=== PATIENT | female | born 1940 | race Two or more races ===

== ENCOUNTER 2023-05-19 09:42 | Outpatient (CLI) | payer OTHER ==
[2023-05-19 10:23] LABS: HEMATOCRIT 34.9 % (36.0-45.00); HEMOGLOBIN 11.6 g/dL (12.0-15.00); MEAN CORPUSCULAR HEMOGLOBIN 31.8 pg (27.00-32.0); MEAN CORPUSCULAR HGB CONC 33.1 g/dl (32.0-36.0); PLATELET COUNT 481 K/uL (150-450); RED BLOOD COUNT 3.64 M/uL (4.00-6.00); RED CELL DISTRIBUTION WIDTH 16.7 % (11.5-14.5)
[2023-05-19 11:08] LABS: ALBUMIN 4.1 gm/dL (3.4-5.0); BILIRUBIN TOTAL 0.36 mg/dL (0.3-1.2); CREATININE SERUM 1.78 mg/dL (0.55-1.02); GFR 27.35; GLOBULINA 4.1 G/DL (2.4-3.5); POTASSIUM 5.45 mEq/L (3.5-5.1); TOTAL PROTEIN 8.2 gm/dL (6.4-8.2); TSH 2.49 uIU/mL (0.358-3.74)
[2023-05-19 13:27] LABS: MANUAL PLATELET COUNT 610
[2023-05-19 13:29] LABS: PLATELET ESTIMATE INCREASED (NORMAL)
== END 2023-05-19 09:47 | disposition home or self-care (01) ==
LOC: LAB 09:42
PROVIDERS: ATTEND Internal Medicine Hematology & Oncology
DX: E11.65 Type 2 diabetes mellitus with hyperglycemia (principal); E06.3 Autoimmune thyroiditis; D47.3 Essential (hemorrhagic) thrombocythemia; D51.1 Vitamin B12 deficiency anemia due to selective vitamin B12 malabsorption with proteinuria; Z86.73 Personal history of transient ischemic attack (TIA), and cerebral infarction without residual deficits; G45.9 Transient cerebral ischemic attack, unspecified; E11.9 Type 2 diabetes mellitus without complications; E03.0 Congenital hypothyroidism with diffuse goiter; M06.9 Rheumatoid arthritis, unspecified; M05.79 Rheumatoid arthritis with rheumatoid factor of multiple sites without organ or systems involvement

== ENCOUNTER 2024-08-21 09:12 | Outpatient (CLI) | payer OTHER ==
[~2024-08-21 09:12] MED LIST: ACTOS15 MG PO; ATACAND HCT 321 EACH PO; ATORVASTATIN CA20 MG PO; ECOTRIN81 MG PO; JANUVIA25 MG PO; LEVOTHYROXINE25 MCG PO; PLAVIX75 MG PO; TOPROL XL50 M1 PO; TREXALL5 MG PO; XELPROS2.5 ML OP
[2024-08-21 11:23] LABS: URINE APPEARANCE Clear; URINE BILIRRUBIN Negative (NEGATIVE); URINE BLOOD Negative; URINE COLOR Yellow; URINE GLUCOSE Negative (NEGATIVE); URINE KETONE Negative (NEGATIVE); URINE LEUKOCYTE Negative; URINE NITRATE Negative; URINE PROTEIN 30 (NEGATIVE); URINE UROBILINOGEN 0.2 E.U./dl
[2024-08-21 11:27] LABS: URINE BACTERIA 89.3 uL (0.0-1933); URINE EPITHELIAL CELLS 2.6 uL (0.0-38.8); URINE WBC 6.1 uL (0.0-23.2)
[2024-08-21 11:57] LABS: HEMATOCRIT 38.9 % (36.0-45.00); HEMOGLOBIN 12.6 g/dL (12.0-15.00); MEAN CELL VOLUME 98.4 fL (80.00-100.00); MEAN CORPUSCULAR HGB CONC 32.5 g/dl (32.0-36.0); PLATELET COUNT 522 K/uL (150-450); RED BLOOD COUNT 3.96 M/uL (4.00-6.00); RED CELL DISTRIBUTION WIDTH 17.1 % (11.5-14.5)
[2024-08-21 12:06] LABS: URINE CAST 1.32 uL (0.0-1.40); URINE RBC 1.7 uL (0.0-20.8)
[2024-08-21 12:20] LABS: URIC ACID 5.8 mg/dL (2.5-7.5)
[2024-08-21 12:23] LABS: ERYTHROCYTE SEDIMENTATION RATE 61 mm/hr
[2024-08-21 12:33] LABS: % SATURACION 25.7 % (15-50); ALBUMIN 3.9 gm/dL (3.4-5.0); BILIRUBIN TOTAL 0.34 mg/dL (0.3-1.2); CALCIUM 9.4 mg/dL (8.5-10.1); CHOL HDL RATIO 2.7 (0-5.0); CREATININE SERUM 1.16 mg/dL (0.55-1.02); FERRITIN 60.9 NG/ML (8-252); GFR 44.72; GLOBULINA 3.7 G/DL (2.4-3.5); PHOSPHOROUS 3.3 mg/dL (2.5-4.9); POTASSIUM 5.29 mEq/L (3.5-5.1); T4 FREE 1.18 NG/ML (0.76-1.46); TOTAL PROTEIN 7.6 gm/dL (6.4-8.2); TSH 1.41 uIU/mL (0.358-3.74)
[2024-08-22 12:04] LABS: FOLIC ACID > 20.00 ng/ml (4.78-20); VITAMIN D3 25 HYDROXY 67.96 ng/ml (30-120)
[2024-08-23 07:33] LABS: MANUAL PLATELET COUNT 1030
[2024-08-23 07:35] LABS: PLATELET ESTIMATE INCREASED (NORMAL)
== END 2024-08-21 09:13 | disposition home or self-care (01) ==
LOC: LAB 09:12
PROVIDERS: ATTEND Internal Medicine Hematology & Oncology
DX: D50.8 Other iron deficiency anemias (principal); R79.9 Abnormal finding of blood chemistry, unspecified; I10 Essential (primary) hypertension; R74.02 Elevation of levels of lactic acid dehydrogenase [LDH]; K76.89 Other specified diseases of liver; Z86.73 Personal history of transient ischemic attack (TIA), and cerebral infarction without residual deficits; G45.9 Transient cerebral ischemic attack, unspecified; E11.9 Type 2 diabetes mellitus without complications; E78.2 Mixed hyperlipidemia; E03.8 Other specified hypothyroidism; M06.9 Rheumatoid arthritis, unspecified; E06.3 Autoimmune thyroiditis; R97.0 Elevated carcinoembryonic antigen [CEA]; R97.8 Other abnormal tumor markers; Z11.1 Encounter for screening for respiratory tuberculosis; R76.12 Nonspecific reaction to cell mediated immunity measurement of gamma interferon antigen response without active tuberculosis; M05.79 Rheumatoid arthritis with rheumatoid factor of multiple sites without organ or systems involvement; N18.30 Chronic kidney disease, stage 3 unspecified; E11.21 Type 2 diabetes mellitus with diabetic nephropathy; D53.1 Other megaloblastic anemias, not elsewhere classified; N30.00 Acute cystitis without hematuria; E78.5 Hyperlipidemia, unspecified; E03.9 Hypothyroidism, unspecified; E11.65 Type 2 diabetes mellitus with hyperglycemia; E55.9 Vitamin D deficiency, unspecified; E83.52 Hypercalcemia; E21.0 Primary hyperparathyroidism

== ENCOUNTER 2024-09-28 15:50 | Emergency (ER) | payer OTHER ==
[~2024-09-28] VITALS: Ht 152.4 cm; Wt 56.7 kg
[2024-09-28] MEDS ORDERED: PLAVIX75 MG (16:26)
[2024-09-28] MEDS ORDERED: GLYXAMBI 25 MG1 EACH PO (16:26)
[2024-09-28] MEDS ORDERED: 0.9 % SODIUM CHLORIDE 1,000 ML IV STA (17:55)
[2024-09-28] MEDS ORDERED: FAMOTIDINE/PF 20 MG in 0.9 % SODIUM CHLORIDE 8 ML IV PUSH STA (17:56)
[2024-09-28] MEDS ORDERED: FAMOTIDINE/PF 20 MG/2 ML VIAL ONE (17:59)
[2024-09-28] MEDS ORDERED: MORPHINE SULFATE 4 MG/ML VIAL IV ONE (18:00)
[2024-09-28 18:25] LABS: HEMATOCRIT 37.2 % (34.1-44.9); MEAN CORPUSCULAR HEMOGLOBIN 31.2 pg (25.6-32.2); RED BLOOD COUNT 3.85 M/uL (3.93-5.22)
[2024-09-28 18:26] LABS: BASO % 0.1 % (0.1-1.2); EOS % 0.1 % (0.7-7.0); LYMPH % 8.7 % (19.3-53.1); MONO % 6.3 % (4.7-12.5); NEUT % 83.9 % (34.0-71.1); PLATELET COUNT 258 K/uL (163-369); RED CELL DISTRIBUTION WIDTH 16.2 % (11.6-14.4)
[2024-09-28 18:27] LABS: EOS # 0.01 (0.04-0.54); LYMPH # 1.41 (1.18-3.74); MONO # 1.02 (0.24-0.82); NEUT # 13.65 (1.56-6.13)
== END 2024-09-28 21:50 | disposition home or self-care (01) ==
LOC: ER 16:59
PROVIDERS: Emergency Medicine
DX: R42 Dizziness and giddiness (principal); M19.90 Unspecified osteoarthritis, unspecified site; Z86.73 Personal history of transient ischemic attack (TIA), and cerebral infarction without residual deficits; I10 Essential (primary) hypertension; M19.241 Secondary osteoarthritis, right hand; M05.79 Rheumatoid arthritis with rheumatoid factor of multiple sites without organ or systems involvement; E11.9 Type 2 diabetes mellitus without complications; Z79.84 Long term (current) use of oral hypoglycemic drugs
CPT/HCPCS: 36415; 70450; 96365; 96366; 99284; J7030

== ENCOUNTER 2025-01-13 10:24 | Outpatient (CLI) | payer OTHER ==
[~2025-01-13 10:24] MED LIST changes: +GLYXAMBI 25 MG1 EACH PO; +PLAVIX75 MG
[2025-01-13 11:22] LABS: URINE APPEARANCE Clear; URINE BILIRRUBIN Negative (NEGATIVE); URINE BLOOD Negative; URINE COLOR Yellow; URINE KETONE Trace (NEGATIVE); URINE LEUKOCYTE Negative; URINE NITRATE Negative; URINE PROTEIN Negative (NEGATIVE); URINE UROBILINOGEN 0.2 E.U./dl
[2025-01-13 11:23] LABS: BASO % 0.3 % (0.1-1.2); EOS # 0.13 (0.04-0.54); EOS % 1.8 % (0.7-7.0); LYMPH # 1.43 (1.18-3.74); LYMPH % 20.1 % (19.3-53.1); MEAN PLATELET VOLUME 11.90 fl (9.4-12.4); MONO # 0.40 (0.24-0.82); MONO % 5.6 % (4.7-12.5); NEUT # 5.07 (1.56-6.13); NEUT % 71.5 % (34.0-71.1); RED CELL DISTRIBUTION WIDTH 16.9 % (11.6-14.4); URINE BACTERIA 41.9 uL (0.0-1933); URINE EPITHELIAL CELLS 3.9 uL (0.0-38.8); URINE WBC 2.4 uL (0.0-23.2)
[2025-01-13 11:30] LABS: URINE CAST 0.43 uL (0.0-1.40); URINE GLUCOSE >=1000 MG/DL (NEGATIVE); URINE RBC 1.7 uL (0.0-20.8)
[2025-01-13 12:29] LABS: % SATURACION 29.4 % (15-50); ALT/SGPT 25.0 U/L (12-78); AST/SGOT 23.0 U/L (15-37); BILIRUBIN TOTAL 0.64 mg/dL (0.3-1.2); BUN CREA RATIO 22.0 (7.0-25.0); CREATININE SERUM 1.83 mg/dL (0.55-1.02); FE 106.0 ug/dl (50-170); GFR 26.43; GLOBULINA 4.1 G/DL (2.4-3.5); LDH 225.0 U/L (84-246); OSMOLALITY SERUM 291.0 MOSM/KG (275-295)
[2025-01-13 12:30] LABS: GLUCOSE FASTING 203.0 mg/dL (65-100)
[2025-01-13 12:52] LABS: FOLIC ACID > 20.00 ng/ml (4.78-20)
== END 2025-01-13 10:32 | disposition home or self-care (01) ==
LOC: LAB 10:24
PROVIDERS: ATTEND Internal Medicine Hematology & Oncology
DX: D47.3 Essential (hemorrhagic) thrombocythemia (principal); D51.1 Vitamin B12 deficiency anemia due to selective vitamin B12 malabsorption with proteinuria; Z86.73 Personal history of transient ischemic attack (TIA), and cerebral infarction without residual deficits; G45.9 Transient cerebral ischemic attack, unspecified; E11.9 Type 2 diabetes mellitus without complications; E78.2 Mixed hyperlipidemia; E03.8 Other specified hypothyroidism; M06.9 Rheumatoid arthritis, unspecified; E06.3 Autoimmune thyroiditis; D50.8 Other iron deficiency anemias; I10 Essential (primary) hypertension; R74.02 Elevation of levels of lactic acid dehydrogenase [LDH]; K76.89 Other specified diseases of liver; R97.0 Elevated carcinoembryonic antigen [CEA]; N18.30 Chronic kidney disease, stage 3 unspecified; E11.21 Type 2 diabetes mellitus with diabetic nephropathy; D63.1 Anemia in chronic kidney disease; N30.00 Acute cystitis without hematuria; E78.5 Hyperlipidemia, unspecified; E03.9 Hypothyroidism, unspecified